=== PATIENT | male | born 1965 | race Caucasian/White ===

== ENCOUNTER 2016-05-28 18:13 | Inpatient (IN) | payer BC ==
--- NOTE | ~2016-05-28 | DS ---
Discharge Summary [facility] [address] [place]. [address] NAME: CLAIRE DESHPANDE : 63 STATUS : DIS IN PAT#: [id number] AGE: 50 ADM/REG DATE : 05/28/16 MR#: [id number] REPORT SERV DATE: 06/07/16 DICTATED BY: ADAM GOMEZ DATE: 06/07/16 REPORT STATUS : Draft TRANSCRIBED BY: DEAN DATE: 06/07/16 Data Collection from hospitalization DISCHARGE DIAGNOSES: 1. Chest pain. 2. Dyspnea on exertion. 3. Fatigue. 4. Hypertension. 5. Adult-onset diabetes mellitus. 6. Body mass index of 48%. 7. Sleep apnea. CONSULTATIONS: None. PROCEDURES PERFORMED: 1. Cardiac catheterization on 05/30/2016. 2. Abdominal ultrasound on 05/29/2016. 3. Myocardial perfusion imaging study on 05/29/2016. MEDICATIONS: Vitamin D 8000 units every morning as instructed, Fortamet 1000 mg twice a day, Lopressor 25 mg twice a day, Altace as instructed, and Ambien 5 mg at bedtime. CONDITION AT DISCHARGE: Stable. DISPOSITION: The patient was discharged home on an 1800-calorie diabetic diet with activities as instructed. He would follow up with me on 06/22/2016. He would follow up with Dr. Javier Mcdonnell on 06/07/2016. HOSPITAL COURSE: This is a 50-year-old man who has no known history of coronary artery disease. He says that since 05/25/2016, he had felt sick in the afternoon and described having nausea, lightheadedness, and twinges of chest pain. The patient thought that his symptoms may be related to low blood sugar, which was not the case. At one point, his blood pressure was 180/100. He also reported considerable fatigue, which had limited his exercise routine. He saw his primary care physician on the day of this admission, and his EKG was found to be abnormal. He was sent to the emergency room. He has reported associated dizziness and belching with some of these episodes. 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 He said his chest pain was a 4/10 at its most intense. At the time of this interview, he was pain free. He said the episodes would last a few minutes in duration. He had reported two weeks of fatigue and limiting of his exercise routine. He reported claudication-like symptoms with lengthy walking described as an ache and cramping in the lower extremities. He denies any personal history of myocardial infarction, stroke, DVT, or pulmonary embolus. He was recently treated for a Staph infection about two months prior to this admission with antibiotics. He was admitted to the hospital at this time for further evaluation and treatment. Upon admission, troponin was less than 0.02 x3. His EKG revealed sinus rhythm. There was early repolarization with inferior and lateral T-wave LAD. The chest pain had typical and Discharge Summary [address] [address] NAME: CLAIRE DESHPANDE : 63 STATUS : DIS IN [facility]#: [id number] AGE: 50 ADM/REG DATE : 05/28/16 MR#: [id number] REPORT SERV DATE: 06/07/16 DICTATED BY: ADAM GOMEZ DATE: 06/07/16 REPORT STATUS : Draft TRANSCRIBED BY: DEAN DATE: 06/07/16 atypical features. He was going to be observed overnight in the CPOU to rule out myocardial infarction with serial enzymes and serial EKGs, and he would be held n.p.o. It was felt that he would need to undergo a myocardial perfusion imaging study. Echocardiogram was requested. We were going to check TSH and free T4. D-dimer was going to be checked. Abdominal ultrasound was requested. We would monitor his blood pressure and continue his home medications. Metformin was held. Level 1 sliding scale insulin was started. The following day, an abdominal ultrasound was performed. Myocardial perfusion imaging study was also performed. He had a chest heaviness that is 3/10. There were nondiagnostic EKG changes. Imaging demonstrated no ischemia. Post exercise left ventricular ejection fraction was 59%. It was felt that the patient would need to undergo cardiac catheterization and possible percutaneous coronary intervention. On 05/30/2016, he had no chest pain or shortness of breath. He was taken to the cardiac veterinary laboratory technician where he underwent the above-mentioned procedure by Dr. Saul Jimenez. He tolerated this well, and there were no complications. Discharge planning was performed. On 05/31/2016, he had been kept overnight secondary to hypertension and increased headache. His headache had improved. His blood pressure was decreasing. His lungs were clear. Discharge instructions were given. Due to his improved and stable condition, he was discharged home with the above-stated instructions. Information collected by: Ida Doe I submit the above information as my discharge summary. TG/MODL Adam Gomez M.D. / [id number] CC: Syd Lewis M.D.
--- NOTE | ~2016-05-28 | HP ---
History And Physical [id number] [place]. [address] NAME: CLAIRE DESHPANDE : 63 STATUS : ADM Mabel PAT#: [id number] AGE: 50 ADM/REG DATE : 05/28/16 MR#: [id number] REPORT SERV DATE: 05/29/16 DICTATED BY: JAZ THOMAS DATE: 05/29/16 REPORT STATUS : Draft TRANSCRIBED BY: MODJose DATE: 05/29/16 DATE OF ADMISSION: 05/28/2016 PET CARE ASSOCIATE: Sandoval Salinas M.D. (new patient appointment 06/22/2016 at 0845 hours.) CHIEF COMPLAINT: Chest pain, fatigued, BECERRA. HISTORY OF PRESENT ILLNESS: A very pleasant 50-year-old white gentleman with no known history of CAD, states that since 05/25/2016 he has felt "sick in the afternoon," described as nauseous, lightheadedness with "twinges of chest pain." The patient thought his symptoms may be related to low blood sugar which was not the case. He also checked his blood pressure and at one point it was 180/100. He also reports considerable fatigue which has limited his exercise routine. He saw his PCP on 05/28/2016, an EKG was performed, it was found to be abnormal, he was sent to the emergency room for further evaluation and treatment. He reports associated dizziness and belching with some of these episodes. He denies shortness of breath with the chest pain or diaphoresis, although he does report dyspnea on exertion such as walking the halls of the school. He rates the chest pain a 4/10 at its most intense. At the time of interview in the [facility], he is pain free. The episodes last "a few minutes in duration." He reports two weeks of fatigue, limiting of exercise routine. He reports claudication like symptoms with lengthy walking described as an ache and a cramping in his lower extremities. The patient denies any personal history of myocardial infarction, stroke, DVT, or pulmonary embolus. The patient recently treated for a Staph infection two months ago with antibiotics. Denies palpitations. No syncopal episodes. Denies PND or orthopnea. PAST MEDICAL HISTORY: 1. Hypertension. 2. AODM. 3. Cholesterol per PCP. 4. Sleep apnea. Does not have CPAP. 5. A 50-pound weight loss over the past year with diet and exercise. 6. Positive family history for early CAD. PAST SURGICAL HISTORY: None. SOCIAL HISTORY: He is with two children. 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 He works out daily on treadmill, bicycle, and David, although he has not work out for the past two weeks given has above-mentioned symptoms. He denies tobacco, alcohol, or illicits. FAMILY HISTORY: Father with a heart attack in his 60s, also has a pacemaker, remains alive at the age of 73. REVIEW OF SYSTEMS: A 14-point review of systems performed, significant for HPI including home blood sugars of History And Physical [address] [address] NAME: CLAIRE DESHPANDE : 63 STATUS : ADM Mabel PAT#: [id number] AGE: 50 ADM/REG DATE : 05/28/16 MR#: [id number] REPORT SERV DATE: 05/29/16 DICTATED BY: JAZ THOMAS DATE: 05/29/16 REPORT STATUS : Draft TRANSCRIBED BY: DEAN DATE: 05/29/16 115 to 120. ALLERGIES: NO KNOWN DRUG ALLERGIES. HOME MEDICATIONS: 1. Vitamin D 8000 units daily. 2. Ramipril 2.5 mg nightly. 3. Metformin 1000 mg twice daily. 4. Ambien 5 mg at bedtime. PHYSICAL EXAMINATION: BLOOD PRESSURE: On arrival, right 158/94, left 153/90, this morning 119/74. PULSE: 71. RESPIRATORY RATE: 22. TEMPERATURE: 97.7. O2 saturation 92% on room air. HEIGHT: 5 feet 7 inches. WEIGHT: 255 pounds. BMI: 40. GENERAL: Cooperative, in no apparent distress. HEENT: Pupils 2 mm, sclera nonicteric. Nares patent. Moist mucous membranes. No xanthelasma. NECK: Trachea midline. No thyromegaly. No JVD. No bruits. LYMPH: No cervical lymphadenopathy. No supraclavicular lymphadenopathy. RESPIRATORY: Unlabored respirations. Breath sounds clear bilaterally to posterior auscultation. No wheezes or rhonchi. CARDIOVASCULAR: Regular rate. No murmur, rub or gallop appreciated. Extremities without edema. Pulses 2+ bilaterally. ABDOMEN: Soft, nontender, and nondistended. Normal bowel sounds auscultated throughout. No organomegaly. SKIN: Warm and dry extremities. No pallor or cyanosis. PSYCHIATRIC: Appropriate affect. Alert and oriented x3. LABORATORY DATA: Troponin less than 0.02 x3. Potassium 3.9, BUN 14, creatinine 0.97, glucose 92, and magnesium 1.6. WBC 9.5, hemoglobin 15.7, hematocrit 44.7, and platelet count 197,000. EKG sinus rhythm. Early repolarization with inferior and lateral T-waves, LAD. ASSESSMENT AND PLAN: 1. Chest pain with typical and atypical features. The patient has been observed in the CPOU overnight to rule out myocardial infarction with serial enzymes and serial EKGs and held n.p.o. We will proceed with MPI today. The patient will be discharged home if low risk, no ischemia. If anything suggestive of ischemia, Cardiology referral will be initiated. Otherwise, the patient will be asked to follow up with PCP and Cardiology as a new patient as appropriate. 2. Dyspnea on exertion and fatigue. Check an echocardiogram. Check TSH and free T4. Check a D-dimer. 3. Right upper quadrant tenderness and n.p.o. for ultrasound of the abdomen. 4. Claudication symptoms. Recommend outpatient testing with Cardiology. History And Physical [address] [address] NAME: CLAIRE DESHPANDE : 63 STATUS : ADM Mabel PAT#: [id number] AGE: 50 ADM/REG DATE : 05/28/16 MR#: [id number] REPORT SERV DATE: 05/29/16 DICTATED BY: JAZ THOMAS DATE: 05/29/16 REPORT STATUS : Draft TRANSCRIBED BY: DEAN DATE: 05/29/16 5. Hypertension. Monitor blood pressure and continue home medications. 6. Adult-onset diabetes mellitus. Hold metformin level 1 sliding scale correction. NIRAJ/DEAN Jaz Thomas, MSN, [employer] / [id number] CC: Jaz Thomas, MSN, [employer] Javier Mcdonnell M.D. Sandoval Salinas MD
[~2016-05-28 18:13] MED LIST: AMB10 PO; ESGIC-PLUS OR; LORTAB 5 PO; METHOC750B PO; PERCOCET1 TA4 PO; PREV30 PO; RANITIDINE300 MG PO; RELA5 PO
[2016-05-28 18:42] LABS: BASOPHILS 0.5 %; BASOPHILS ABSOLUTE 0.05 10/3/uL (0.0-0.16); EOSINOPHILS 4.7 %; EOSINOPHILS ABSOLUTE 0.45 10/3/uL (0.0-0.53); HEMATOCRIT 44.7 % (40.0-51.0); HEMOGLOBIN 15.7 g/dL (13.6-17.8); IMMATURE GRANULOCYTES 0.3 %; IMMATURE GRANULOCYTES ABSOLUTE 0.03 10/3/uL (0.0-0.11); LYMPHOCYTES 32.1 %; LYMPHOCYTES ABSOLUTE 3.05 10/3/uL (0.67-4.30); MEAN CORPUS HGB CONC 35.1 g/dL (32.0-36.0); MEAN CORPUSCULAR HEMOGLOB 29.9 pg (26.0-34.0); MEAN CORPUSCULAR VOLUME 85.1 fL (80-100); MEAN PLATELET VOLUME 10.8 fL (9.2-13.0); MONOCYTES 8.1 %; MONOCYTES ABSOLUTE 0.77 10/3/uL (0.21-1.20); NEUTROPHILS 54.3 %; NEUTROPHILS ABSOLUTE 5.14 10/3/uL (2.02-8.40); PLATELET COUNT 197 10/3/uL (150-400); RBC DISTRIBUTION WIDTH 13.8 % (12.0-16.0); RED CELL COUNT 5.25 10/6/uL (4.7-6.1); WHITE BLOOD CELLS 9.5 10/3/uL (4.5-10.5)
[2016-05-28 18:45] LABS: MANUAL DIFF NO %
[2016-05-28 18:49] LABS: PARTIAL THROMBO TIME 28.7 SEC (22.5-37.2); PROTIME (NOT ORD) 13.5 SEC (12.0-14.5)
[2016-05-28 18:59] LABS: BUN (BLOOD UREA NITROGEN) 14 MG/DL (6-23); CALCIUM, SERUM 8.5 MG/DL (8.5-10.4); CHEST PAIN PROFILE TAT 0 Hrs 21 Mins; CHLORIDE, SERUM 107 MMOL/L (96-112); CO2 (CARBON DIOXIDE) 26 MMOL/L (24-34); CREATININE 0.97 MG/DL (0.70-1.30); GFR AFRICAN AMERICAN 104 ML/MIN (>=60); GFR NON AFRICAN AMERICAN 90 ML/MIN (>=60); GLUCOSE, SERUM 92 MG/DL (60-99); POTASSIUM, SERUM 3.9 MMOL/L (3.5-5.3); SODIUM, SERUM 142 MMOL/L (135-148); TROPONIN I <0.02 NG/ML (<0.05)
[2016-05-28] MEDS ORDERED: FORTAMET500 MG PO (19:57)
[2016-05-28] MEDS ORDERED: ALTA2.5 PO (19:58)
[2016-05-28] MEDS ORDERED: AMB5 PO (19:59)
[2016-05-28] MEDS ORDERED: VITAMIN D2000 UNIT PO (20:01)
[2016-05-29 09:28] LABS: FREE T4 1.16 NG/DL (0.76-1.46); ULTRASENSITIVE TSH 1.51 MCIU/ML (0.358-3.740)
[2016-05-30 05:18] LABS: BASOPHILS 0.8 %; BASOPHILS ABSOLUTE 0.06 10/3/uL (0.0-0.16); EOSINOPHILS 5.5 %; EOSINOPHILS ABSOLUTE 0.44 10/3/uL (0.0-0.53); HEMATOCRIT 42.9 % (40.0-51.0); HEMOGLOBIN 15.3 g/dL (13.6-17.8); IMMATURE GRANULOCYTES 0.4 %; IMMATURE GRANULOCYTES ABSOLUTE 0.03 10/3/uL (0.0-0.11); LYMPHOCYTES 29.5 %; LYMPHOCYTES ABSOLUTE 2.35 10/3/uL (0.67-4.30); MEAN CORPUS HGB CONC 35.7 g/dL (32.0-36.0); MEAN CORPUSCULAR HEMOGLOB 30.4 pg (26.0-34.0); MEAN CORPUSCULAR VOLUME 85.3 fL (80-100); MEAN PLATELET VOLUME 10.6 fL (9.2-13.0); MONOCYTES 11.9 %; MONOCYTES ABSOLUTE 0.95 10/3/uL (0.21-1.20); NEUTROPHILS 51.9 %; NEUTROPHILS ABSOLUTE 4.13 10/3/uL (2.02-8.40); PLATELET COUNT 182 10/3/uL (150-400); RBC DISTRIBUTION WIDTH 13.5 % (12.0-16.0); RED CELL COUNT 5.03 10/6/uL (4.7-6.1)
[2016-05-30 05:24] LABS: MANUAL DIFF NO %
[2016-05-30 05:34] LABS: CALCIUM, SERUM 8.6 MG/DL (8.5-10.4); CHLORIDE, SERUM 105 MMOL/L (96-112); CO2 (CARBON DIOXIDE) 26 MMOL/L (24-34); CREATININE 1.08 MG/DL (0.70-1.30); GFR AFRICAN AMERICAN 92 ML/MIN (>=60); GFR NON AFRICAN AMERICAN 79 ML/MIN (>=60); GLUCOSE, SERUM 106 MG/DL (60-99); HDL CHOLESTEROL 33 MG/DL (> 39); POTASSIUM, SERUM 3.9 MMOL/L (3.5-5.3); SODIUM, SERUM 141 MMOL/L (135-148)
[2016-05-30 05:45] LABS: BUN (BLOOD UREA NITROGEN) 10 MG/DL (6-23); CHOLESTEROL 131 MG/DL (< 200); LDL CHOLESTEROL 82 MG/DL (< 130); NON-HDL CHOLESTEROL 98 MG/DL (< 160); TRIGLYCERIDE 83 MG/DL (< 150)
[2016-05-31] MEDS ORDERED: LOP25 PO (08:44)
[2016-05-31] MEDS ORDERED: ALTA5 (08:44)
== END 2016-05-31 09:04 | disposition home or self-care (01) | DRG 287 ==
LOC: ER 18:13 → CDU1 19:47 → CDU2 20:35
PROVIDERS: Clinical Nurse Specialist; Hospitalist
PROC: 4A023N7 Measurement of Cardiac Sampling and Pressure, Left Heart, Percutaneous Approach (ICD-10-PCS; principal; 2016-05-30)
PROC: B2111ZZ Fluoroscopy of Multiple Coronary Arteries using Low Osmolar Contrast (ICD-10-PCS; 2016-05-30)
PROC: B2151ZZ Fluoroscopy of Left Heart using Low Osmolar Contrast (ICD-10-PCS; 2016-05-30)
DX: R07.9 Chest pain, unspecified (principal); Z68.41 Body mass index [BMI] 40.0-44.9, adult; I10 Essential (primary) hypertension; E11.9 Type 2 diabetes mellitus without complications; E78.00 Pure hypercholesterolemia, unspecified; I73.9 Peripheral vascular disease, unspecified; E66.9 Obesity, unspecified; Z79.84 Long term (current) use of oral hypoglycemic drugs; Z82.49 Family history of ischemic heart disease and other diseases of the circulatory system
CPT/HCPCS: 71020; 76700; 78452; 80048; 80061; 82962; 83735; 84439; 84443; 84484; 85025; 85379; 85610; 85730; 93005; 93017; 93458; 99152; 99285; A9270-GY; A9502; C1769; C1887; C1894; C8929; J2250; J3010; Q9957; Q9967